=== PATIENT | male | born 1940 | race Caucasian/White ===

== ENCOUNTER → 2017-11-23 | Outpatient (CLI) | payer OTHER, MEDICARE | LOC: BMCIMAGING 14:19 | PROVIDERS: ATTEND Orthopaedic Surgery Hand Surgery | DX: M19.041 Primary osteoarthritis, right hand (principal) ==

== ENCOUNTER → 2019-05-09 | Outpatient (CLI) | payer OTHER, MEDICARE | LOC: BMCIMAGING 13:22 ==